=== PATIENT | male | born 1990 | race Caucasian/White ===

== ENCOUNTER → 2017-10-22 | Outpatient (CLI) | payer OTHER | LOC: BMCIMAGING 12:01 | PROVIDERS: ATTEND Internal Medicine Gastroenterology | DX: Z01.89 Encounter for other specified special examinations (principal); R93.3 Abnormal findings on diagnostic imaging of other parts of digestive tract ==

== ENCOUNTER → 2017-12-24 | Outpatient (CLI) | payer OTHER | LOC: FIMAGING 08:23 | PROVIDERS: ATTEND Surgery | DX: K21.9 Gastro-esophageal reflux disease without esophagitis (principal) ==

== ENCOUNTER 2018-02-07 09:43 | Day surgery (SDC) | payer OTHER ==
--- NOTE | 2018-02-06 21:58 | PDGENHP ---
History and Physical - Chief Complaint RIGHT HIP PAIN - History of Present Illness 1. Bilateral~Femoroacetabular impingement (PRASHATN) Cam type,~with~resultant labral tear~ 2. ~~Bilateral borderline hip dysplasia HISTORY OF PRESENT ILLNESS: Duniais a 27 y.o.~very~~active male~who I have had the pleasure to consult on today. 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 ~ Duniaenjoys soccer, [employer], hiking, running, weight lifting. Bogdan's~right~hip pain started April 2017, with~some~recalled trauma or injury after weight training and playing soccer, and with~no~previous complaints. Dunia does not have~a known history of hip dysplasia. Presentation today is of~lateral~right~hip pain but also often has groin pain and some buttocks. ~The hip~does not~wake him~at night and does~click and catch on him. Sitting~can be uncomfortable~for him~and can be more uncomfortable than standing and walking.~Duniadoes~report suffering from lower back pain episodes on the R side, which has only started since his hip pain.~ Also reports R abdominal pain and GI issues, which he thinks may be related. Duniahas~participated in physical therapy since May 2017~and~has~tried other conservative measures including chiropractic treatments and~acupuncture.~He~has not~received sufficient symptomatic improvement. Duniahas~utilized medication for pain management, including NSAID.~Duniahas used medication about 1x weekly since April, Duniadenies issues with the left~hip. ~ Duniaunderstands that he~has a hip and pelvis problem which should be researched and wishes to get a better understanding of his~hip status, followed by an establishment of a treatment strategy, hoping he~would be able to get back to his~well being active life. History: Past medical history:~~ Rotator cuff tear "GI issue" with no clear diagnosis yet (normal CT, stool studies) Relevant familial history:~Parents with high cholesterol, father s/p cardiac surgery. No h/o clotting d/o Past surgical history:~ None~- scheduled for R shoulder surgery next week with [facility]) Duniahas never received general anesthesia. I have reviewed, verified and agree with the past medical, surgical, family and social history. Current Medications:~currently has no medications in their medication list. ALLERGIES:~has No Known Allergies. Objective: Physical Examination: Duniais 5~feet 8~inches tall and weighs 170~Lbs. Duniais AAO x3; isma~is well- nourished, in NAD. Skin is warm and dry. ~Breathing is non-labored. ~CV with RRR by pulse. Abdomen is soft, NTND. Currently,~isma~walks with a normal~gait. Trendelenburg sign is~negative~and proprioception is reduced,~right~sides. He~presents with no~signs of joint laxity. Beightons Score:~1 (L knee) Isma~is fit looking. ~~ Lower spine examination is~negative~for sciatic or femoral nerve irritation with negative~SLR &~femoral stretch tests. Range of motion of the spine is normal~for flexion, extension, and rotations, with no~associated pain. Strength, Sensation and pulses are~normal -~bilaterally Ankles and knees exams are~normal~and no~mal-alignment is evident. Isma~has~right~0.5~cm short leg length discrepancy. Thigh circumference is~symmetric~with no evidence for muscle atrophy~on both~ sides. Hip ROM (degrees): FL ER At 90~hip FL IR At 90~hip FL AB AD EX IR Neutral hip ER Neutral hip R 105 40 10 30 10 0 30 25 L 100 40 20 35 5 0 30 15 Specific hip and pelvis tests: Impingement Test KAILA Roll Add. Longus R +++ +++ Negative Negative L Negative Negative Negative Negative Glut. Med ITB Posterior Imp R +++ 5/5 strength Negative 5/5 strength Negative L Negative 5/5 strength Negative 5/5 strength Negative Squeeze test measured~normal~with pain in the R groin Bony Symphysis pubis is~painful~to touch while concentric activity of the rectus abdominis, does~produce pain at its insertion. Ilio Psos specific tests are~positive for~mild~pain during cycling for the right hip~and remarkable for non painful snap HF has~some pain~the right hip. Lateral~capsule tenderness R side Greater trochanteric burse is~painful~on the right hip. Piriformis tests: FAIR is~negative,~with no~local signs of neuritis related to sciatic nerve. SIJs examination is~normal~with normal~KAILA in relation and local tenderness. Hamstrings tests are~negative~tendinopathy both hips. On a daily basis, the following percentages reflect~Bogdan's overall total pain: Deep hip:~100% Lateral~:~50%, anterior groin 50% Imaging: Radiology studies which I have personally reviewed, analyzed and measured are below: XR: AP of the hip and pelvis: Performed in a~good~technique Coccyx to pubic symphysis distance~1.5~cm. 7~degrees caudal In parenthesis zero degrees Weight Bearing with leveled coccyx~ [place] Lines are~preserved. No~Pathological signs are seen in the Symphysis Pubis. No~Pathological signs are seen at the Ischial tuberosity. ~ Specific measurements show: NSA~ LCE Sourcil~Angle Sharp's angle Lat. Cam Lat. Pincer C.Over~sign Head~Coverage % ATDmm R 127 22 (20) 8 (10) 38 + Neg Neg 72% 12.1 L 130 23 (21) 10 (10) 39 + Neg Neg 71% 21.5 Pos. wall sign ISS NAD ~~Dysplasia Comments R Negative Negative 13.2~mm + L + ++ 11.4~mm ++ Sclerosis Sup. Lat. OA Cysts Joint Space-WBZ Joint Space-Medial R Negative Negative Negative 4.1~mm 3.3~mm L Negative Negative Negative 4.1~mm 3.7~mm X Table lateral: Anterior cam lesion is~seen~on both hips. Alpha Angle: ~ Right~78~degrees Left~69~degrees MRI shows:~10/22/17 R hip: No significant labral hypertrophy (labral length 7 mm) ,~torn labrum, good congruency of ball to socket,~good cartilage, no cysts or edema~at sub chondral bone~ Impression and plan:~ Bogdan~is a 27 y.o.~active male~suffering from Right~hip pain due to Femoroacetabular impingement (PRASHANT)~Cam type,~with~resultant labral tear and underline~Borderline Hip Dysplasia,~causing significant disability to him~and altering his~sport and life activities. Physical examination, imaging, and~his~story correspond with the diagnosis mentioned above. I explained that hip dysplasia is a condition wherein the hip joint has excessive play~and instability due to a variety of factors, including the depth and adequacy of the socket, the orientation of the femur bone, and ligament laxity around the hip joint. Dysplasia ranges in severity from borderline to carlos, with treatment options being specific to the specific nature of the problem. Left untreated, the instability in the hip joint can cause progressive tearing of the labrum and deterioration of the surface cartilage, ultimately resulting in progressive osteoarthritis of the hip. I explained that femoroacetabular impingement (PRASHANT - Cam type) arises due to a bony or soft tissue conflict between the femur (ball) and acetabulum (socket) caused by an abnormality in the shape of the femoral head and neck. Over time, repetitive impingement can result in damage to the labrum and adjacent surface cartilage within the socket, ultimately giving rise to progressive osteoarthritis of the hip. I explained that although a labral tear can be a source of pain, it is rarely the root of the problem and typically occurs secondary to an underlying abnormality in the shape and mechanics of the hip joint. I reviewed conservative treatment options for Dysplasia and PRASHANT including activity modification to avoid positions of impingement or instability, physical therapy, non-steroidal anti-inflammatory medications, and various injections (corticosteroid and PRP) aimed at reducing inflammation in the hip joint or/and preventing dynamic instability and impingement. PRP injections may promote healing and reduce symptoms in certain cases but it will not repair chronically damaged tissue. Although these measures may help to buy time~and reduce current level of symptoms, they are not a definitive solution to the problem given the underlying abnormality in the shape of the hip joint. Patients who have failed conservative management and continue to experience symptoms are candidates for definitive surgical treatment, which may consist of hip arthroscopy alone or in combination with more invasive bony realignment procedures of the hip socket and/or femur called periacetabular osteotomy (MARY) or derotational femoral osteotomy (DFO). Hip arthroscopy typically includes treating the labrum with either repair or reconstruction of the torn labrum; as well as addressing the underlying abnormalities by restoring the normal shape to the hip joint. If the cartilage is damaged a Microfracture surgical procedure may also be necessary to help stimulate the growth of fibrocartilage. If a patient requires a labral reconstruction or a Microfracture, the initial rehabilitation from the surgery may take longer, but the long-term results are typically favorable. I reviewed the technical aspects of periacetabular osteotomy (MARY) including risks, benefits, and expected course of recovery.~Duniaunderstands that MARY is an inpatient procedure carried out through two medium sized incisions on the front and back of the hip joint. The hip socket is cut, realigned, and stabilized with 2 3 internal screws. Risks include infection, bleeding, injury to nearby nerves or vessels, stiffness, persistent pain, instability, failure of bony healing, implant related complications, and venous thromboembolic disease. Rarely, revision surgery may be required to address these problems. Risks, potential complications, side effects and recovery from surgical procedure were discussed in length. We explained how this surgery is an open procedure, and though patients tend to do well in the long-term, it involves significant pain in the first 2-4 weeks post-op and a rather lengthy rehab.~Overall recovery takes approximately 6 12~months depending on the extent of damage and degree of repair. Bogdan~understands that he~will undergo hip arthroscopy 1 week prior to the MARY to address damage inside the hip joint. Bogdan~understands that hip arthroscopy and MARY are two separate procedures that are best performed one week apart, with the arthroscopy commencing first to "tighten up" any pathology evident in the hip joint (labral repair, etc.) and the MARY open procedure occurring 7-10 days later to realign the acetabulum. Given his male gender, no hyperlaxity, and mild dysplasia, I would not recommend MARY as a first line surgical treatment. That being said, if he were to fail hip arthroscopy alone, it may be due to~the underline~dysplasia and instability. In this case and at that time MARY will be indicated.~He understands this and agrees with pursuing hip arthroscopy alone. Bogdan~will review the info presented. Duniais going to think about his~options and get back to us. If he decides to have surgery with us, he will require a CT scan, which will~ obtain more detailed information regarding the alignment, orientation, and shape of the bony hip and pelvis.~The results of the CT scan, including femoral torsion and acetabular version measured values and 3D images, will aid me in deciding on the best treatment strategy and surgical pre-planning. This imaging modality can also assist us in finalizing treatment strategy ( scope alone versus scope+MARY) in a more objective and evidenced based manner.~ Bogdan~is happy with this plan. I have also supplied~him~with handouts, outlining the expected surgical treatment and rehab involved. I wish~Bogdan~all the best, ~~ Michela Funk MD History Information - Allergies/Home Medication List Allergies/Adverse Reactions: tc Allergy (Verified 01/17/18 10:16) throat itching Home Medications: Adult One Daily Multivit Tab 01/17/18 [Last Taken Unknown] Magnesium 01/17/18 [Last Taken Unknown] Probiotic 01/17/18 [Last Taken Unknown] Vitamin C 01/17/18 [Last Taken Unknown] I have personally reviewed and updated: medical history - Social History Smoking Status: Never smoked Review of Systems Review of Systems: Physical Exam Physical Exam:
[2018-02-07] MEDS ORDERED: PREGABALIN 150 MG CAP PO ONE (09:52)
[2018-02-07] MEDS ORDERED: ACETAMINOPHEN 500 MG TAB PO ONE (09:52)
[2018-02-07] MEDS ORDERED: ceFAZolin 2 GM/DEXTROSE 100 ML IV ONE (09:52)
[2018-02-07] MEDS ORDERED: LIDOCAINE 1% 2 ML INJ ID PRN (09:53)
[2018-02-07] MEDS ORDERED: NS 1,000 ML IV ONE (09:53)
[2018-02-07] MEDS ORDERED: BUPIVACAINE 0.25% 30 ML SDV ONE (10:22)
[2018-02-07] MEDS ORDERED: LR 1,000 ML IV ONE (10:22)
[2018-02-07] MEDS ORDERED: EPINEPHrine 30 MG/30 ML MDV (0.1 MG/0.1 ML) ONE (10:22)
[2018-02-07] MEDS ORDERED: MIDAZOLAM 2 MG/2 ML VIAL IVP ONE (10:30)
--- NOTE | 2018-02-07 10:30 | PDANEPAE ---
ANE History of Present Illness torn labrum here for hip scope ANE Past Medical History - Cardiovascular History Hx Hypertension: No Hx Arrhythmias: No Hx Chest Pain: No Hx Coronary Artery / Peripheral Vascular Disease: No Hx CHF / Valvular Disease: No Hx Palpitations: No Cardiovascular History Comment: states occasional slightly high blood pressure when at doctors - Pulmonary History Hx COPD: No Hx Asthma/Reactive Airway Disease: No Hx Recent Upper Respiratory Infection: No Hx Oxygen in Use at Home: No Hx Sleep Apnea: No Sleep Apnea Screening Result - Last Documented: Negative - Neurologic History Hx Cerebrovascular Accident: No Hx Seizures: No Hx Dementia: No Neurologic History Comment: right hand and arm tingling r/t shoulder injury but slowly resolving - Endocrine History Hx Diabetes: No - Renal History Hx Renal Disorders: No - Liver History Hx Hepatic Disorders: No - Neurological & Psychiatric Hx Hx Neurological and Psychiatric Disorders: No - Cancer History Hx Cancer: No - Congenital Disorder History Hx Congenital Disorders: No - GI History Hx Gastrointestinal Disorders: Yes Gastrointestinal History Comment: Has been having irritable bowel issues ever since injuring hip. Tightness, distention, pain RLQ. Frequent stools. Has had multiple studies done with no specific diagnosis, possiblyr/t hip injury. Just watching and seeing if it improves after hip is fixed. - Other Health History Other Health History: wears glasses/contacts. frequent sinus infections - Chronic Pain History Chronic Pain: Yes (hip, shoulder) - Surgical History Prior Surgeries: right shoulder subacromial decomperssion ANE Review of Systems Review of Systems: - Exercise capacity METS (RN): 6 METS ANE Patient History - Allergies Allergies/Adverse Reactions: tc Allergy (Verified 01/17/18 10:16) throat itching - Home Medications Home Medications: Adult One Daily Multivit Tab 01/17/18 [Last Taken Unknown] Magnesium 01/17/18 [Last Taken Unknown] Probiotic 01/17/18 [Last Taken Unknown] Vitamin C 01/17/18 [Last Taken Unknown] - NPO status NPO Status: no food or drink >8 hours - Anes Hx Anes Hx: no prior problems - Smoking Hx Smoking Status: Never smoked - Alcohol Use Alcohol Use: Occasionally - Family Anes Hx Family Anes Hx: none Family Hx Anesthesia Complications: none ANE Labs/Vital Signs - Vital Signs Vital Signs: reviewed preoperatively; see RN documention for details Height: 175.26 cm Weight: 77.111 kg ANE Physical Exam - Airway Neck exam: FROM Mallampati Score: Class 2 Mouth exam: normal dental/mouth exam - Pulmonary Pulmonary: no respiratory distress, clear to auscultation - Cardiovascular Cardiovascular: regular rate and rhythym, no murmur, rub, or gallop - ASA Status ASA Status: I ANE Anesthesia Plan Anesthesia Plan: general endotracheal anesthesia
[2018-02-07] MEDS ORDERED: PROPOFOL 200 MG/20 ML VIAL ONE (11:05)
[2018-02-07] MEDS ORDERED: fentaNYL 100 MCG/2 ML INJ ONE (11:05)
[2018-02-07] MEDS ORDERED: LIDOCAINE 2% 100 MG/5 ML SYR ONE (11:06)
[2018-02-07] MEDS ORDERED: ROCURONIUM 100 MG/10 ML VIAL ONE (11:06)
[2018-02-07] MEDS ORDERED: MIDAZOLAM 2 MG/2 ML VIAL ONE (11:16)
[2018-02-07] MEDS ORDERED: HYDROmorphONE/DILAUDID 2 MG/ML INJ ONE (13:04)
[2018-02-07] MEDS ORDERED: DEXAMETHASONE 4 MG/ML VIAL ONE (13:05)
[2018-02-07] MEDS ORDERED: ONDANSETRON 4 MG/2 ML VIAL ONE (13:05)
[2018-02-07] MEDS ORDERED: PROPOFOL/EMULSION 500 MG/50 ML BOTTLE IV ONE ×2 (13:34→14:32)
[2018-02-07] MEDS ORDERED: HYDROCODONE/APAP 5/325 TAB PO PRN (15:38)
[2018-02-07] MEDS ORDERED: oxyCODONE IR 5 MG TAB PO PRN (15:38)
[2018-02-07] MEDS ORDERED: ONDANSETRON 4 MG/2 ML VIAL IVP PRN (15:38)
[2018-02-07] MEDS ORDERED: HYDROmorphONE/DILAUDID 2 MG/ML INJ IVP PRN (15:38)
[2018-02-07] MEDS ORDERED: ACETAMINOPHEN 500 MG TAB PO PRN (15:38)
[2018-02-07] MEDS ORDERED: DIAZEPAM 5 MG/ML 1 ML SYR IVP PRN (15:38)
[2018-02-07] MEDS ORDERED: PROMETHAZINE HCL 25 MG/ML INJ IVP PRN (15:38)
[2018-02-07] MEDS ORDERED: fentaNYL 100 MCG/2 ML INJ IVP PRN (15:38)
[2018-02-07] MEDS ORDERED: NALOXONE HCL 0.4 MG/ML INJ IVP PRN (15:38)
--- NOTE | 2018-02-07 15:40 | POSTANESTH ---
Post Anesthetic Evaluation Cardiovascular Status: Normal, Stable, Similar to Pre-Op Cond Respiratory Status: Normal, Stable, Similar to Pre-op Cond. Level of Consciousness/Mental Status: Moderately Sleepy Pain Control: Adequate, Prn Tx Ordered Nausea/Vomiting Control: Adequate, Prn Tx Ordered Complications Possibly Related to Anesthesia: None Noted
--- NOTE | 2018-02-07 16:42 | POSTOPPROG ---
Post Op Note Date of Operation: 02/07/18 Surgeon: Job Maya Associate: Dr. Zhao Anesthesia: GET(General Endotracheal) Pre-op Diagnosis: RIGHT PRASHANT Post-op Diagnosis: RIGHT PRASHANT Procedure: Right Hip arthroscopy Inf/Abcess present in the surg proc area at time of surgery?: No
[2018-02-07] MEDS ORDERED: HYDROCODONE/APAP 5/325 TAB ONE (17:32)
[2018-02-07 17:58] VITALS: BP 140/84
== END 2018-02-07 19:01 | disposition home or self-care (01) ==
LOC: FSGY 09:43
PROVIDERS: ATTEND Orthopaedic Surgery Sports Medicine
PROC: 0SQ94ZZ Repair Right Hip Joint, Percutaneous Endoscopic Approach (ICD-10-PCS; principal; 2018-02-07 11:00)
PROC: BQ101ZZ Fluoroscopy of Right Hip using Low Osmolar Contrast (ICD-10-PCS; principal; 2018-02-07 11:00)
PROC: 0SB94ZZ Excision of Right Hip Joint, Percutaneous Endoscopic Approach (ICD-10-PCS; principal; 2018-02-07 11:00)
DX: M25.851 Other specified joint disorders, right hip (principal); Q65.89 Other specified congenital deformities of hip; M65.9 Synovitis and tenosynovitis, unspecified
CPT/HCPCS: C1713; J0171; J0690; J1100; J1170; J2001; J2250; J2405; J2704; J3010

== ENCOUNTER → 2018-03-21 | Outpatient (CLI) | payer OTHER | LOC: FIMAGING 08:12 | DX: K31.84 Gastroparesis (principal) | CPT/HCPCS: A9541 ==

== ENCOUNTER → 2018-05-07 | Outpatient (CLI) | payer OTHER ==
[~2018-05-07] MED LIST: GADOBUTROL 10 ML VIAL IVP ONE
== END ==
LOC: FIMAGING 07:37
DX: M50.322 Other cervical disc degeneration at C5-C6 level (principal); M51.34 Other intervertebral disc degeneration, thoracic region
CPT/HCPCS: A9585